=== PATIENT | female | born 1955 | race Caucasian/White ===

== ENCOUNTER 2017-05-20 08:40 | Day surgery (SDC) | payer OTHER ==
[2017-05-20] MEDS ORDERED: NITROGLYCERIN (IC) 100 MCG/ML INJ (10:06)
[2017-05-20] MEDS ORDERED: IODIXANOL LOCM 100 ML BTL (10:06)
[2017-05-20] MEDS ORDERED: HEPARIN 1000 UNITS/ML 10 ML INJ (10:06)
[2017-05-20] MEDS ORDERED: VERAPAMIL 5 MG INJ (10:06)
[2017-05-20] MEDS ORDERED: LIDOCAINE 1% (MDV) 20 ML INJ (10:06)
[2017-05-20] MEDS ORDERED: MIDAZOLAM 1 MG/ML 2 ML INJ (10:12)
[2017-05-20] MEDS ORDERED: FENTAnyl 50 MCG/ML VIAL (10:12)
[2017-05-20] MEDS ORDERED: hydrALAzine 20 MG INJ (11:36)
[2017-05-20] MEDS: hydrALAzine 20 MG INJ IV (12:29)
== END 2017-05-20 13:55 | disposition short-term general hospital (02) ==
LOC: CCL 08:40
DX: I21.4 Non-ST elevation (NSTEMI) myocardial infarction (principal); J96.00 Acute respiratory failure, unspecified whether with hypoxia or hypercapnia; N19 Unspecified kidney failure; I50.31 Acute diastolic (congestive) heart failure
CPT/HCPCS: 93458